=== PATIENT | male | born 1990 | race Caucasian/White ===

== ENCOUNTER → 2019-06-21 | Outpatient (CLI) | payer BC ==
--- NOTE | 2019-06-22 14:16 | KCIC ---
PA and lateral chest HISTORY: Sternal pain, R07.89 PA and lateral views were taken of the chest. Lungs are clear. Heart is normal in size without heart failure. There is no effusion. IMPRESSION: 1. No acute chest disease. Electronically signed by: Cory Seo MD (06/22/2019 2:13 PM) [facility]
== END | disposition home or self-care (01) ==
LOC: KCIC 15:30
PROVIDERS: ATTEND Family Medicine
DX: R07.89 Other chest pain (principal)
CPT/HCPCS: 71046